=== PATIENT | male | born 1990 | race African-American/Black ===

== ENCOUNTER 2025-04-24 05:08 | Emergency (ER) | payer BC, SELFPAY ==
[2025-04-24 05:11] VITALS: BP 134/67; PULSE 65; RESP 18; TEMP 36.6; O2SAT 100
[2025-04-24 06:53] LABS: Add Urine Microscopic? NO; Appearance Urine Clear (Clear); Glucose Urine UA Negative (Negative); Leukocyte Esterase Ur Negative LEU/UL (Negative); Nitrate Urine Negative (Negative); Specific Grav Ur 1.019 (1.001-1.035)
--- OUTSIDE RECORDS SUMMARY | 2025-04-24 07:32 | XMS_ITS | Clinical Summary ---
Author Organization [facility] Address [address] [place] [address] Care Team Providers Care Rent Collector Name Role Phone Unavailable Primary Care Provider Unavailabl e Allergies No known active allergies Social History Tobacco Use Types Packs/Day Years Used Date Smoking Tobacco: Never Assessed Sex and Gender Information Value Date Recorded Sex Assigned at Not on file Legal Sex Male 12:58 AM CDT Gender Identity Not on file Sexual Orientation Not on file Last Filed Vital Signs Vital Sign Reading Time Taken Comments Blood Pressure 94/55 11/23/2017 2:18 AM CDT Pulse 65 11/23/2017 2:18 AM CDT Temperature 36.4 C (97.6 F) 11/23/2017 1:01 AM CDT Respiratory Rate 20 11/23/2017 2:18 AM CDT Oxygen Saturation 99% 11/23/2017 2:18 AM CDT Inhaled Oxygen Concentration - - Weight - - Height 177.8 cm (5' 10) 11/23/2017 1:01 AM CDT Body Mass Index - - Plan of Treatment Health Maintenance Due Date Last Done Comments Annual Physical 1995 Hepatitis C 2010 DTaP, Tdap and Td Vaccines ( 1 - Tdap) 2011 Hepatitis B Vaccines (1 of 3 - 19+ 3-dose series) 2011 HPV Vaccines (1 - 3-dose SCD M series) 2019 COVID-19 Vaccine (2023-2 5 season) 2025 Meningococcal B Vaccine Aged Out No l onger eligible based on patient's age to complete this topic Meningococcal Vaccine Aged Out No lucia moisés eligible based on patient's age to complete this topic Pneumococcal Vaccine: Pediat rics (0 to 5 Years) and At-Risk Patients (6 to 49 Years) Aged Out No longer eligible b ased on patient's age to complete this topic RSV Immunizations Under 20 Months Aged Out No longer eligible based on patient's age to complete this topic
--- NOTE | 2025-04-24 08:01 | ED.GENADULT ---
HPI - General Adult General Chief complaint: Unspecified Stated complaint: not feeling well, hurts down there Time Seen by Provider: 04/24/25 07:03 History of Present Illness HPI narrative: Patient is a 35-year-old male who presents ER with concerns about his groin. He has had some pain within the inguinal crease on the left and right side. Originally he was having fatigue over the last week cannot feeling right. He also reports he feels a little discomfort around his scrotum but notices no lesions. He denies being a risk for sexually transmitted infection. No dysuria or urinary frequency/urgency. No drainage from the tip his penis. He is concerned he may be diabetic. No known trauma. No back pain. Related Data Allergies Allergy/AdvReac Type Severity Reaction Status Date / Time No Known Allergies Allergy Verified 04/24/25 05:14 Review of Systems Constitutional: Constitutional: Reports no additional constitutional complaints Gastrointestinal: Gastrointestinal: Reports no additional gastrointestinal complaints Genitourinary: Genitourinary: Reports no additional male genitourinary complaints PMF Past Medical History Medical History (Updated 04/24/25 @ 08:06 by Juma Mcclellan MD) Healthy adult male Surgical History Surgical History (Updated 04/24/25 @ 08:03 by Juma Mcclellan MD) No pertinent past surgical history Exam Narrative: GENERAL: Well-appearing, well-nourished, and in no acute distress. HEAD: Normocephalic, atraumatic. ENT: Mucous membranes moist. CHEST: Clear to auscultation. No respiratory distress. HEART: Regular rate and rhythm. Normal peripheral pulses. ABDOMEN: Soft, nontender, nondistended. : Normal appearing external genitalia with circumcised penis. No urethral discharge. No testicular tenderness. No palpable lymphadenopathy in the groin. EXTREMITIES: Normal range of motion. No edema. SKIN: Warm, dry, no rash. NEURO: Alert and oriented x3. Course Course Emergency Course: UA and bedside glucose normal. Appropriate for discharge home. May have had a viral syndrome causing the. No back injury or back pain to indicate cauda equina. Recommend follow-up with PCP. Exam not consistent with STI, testicular torsion. Vital Signs Vital signs: Vital Signs Temperature 97.8 F 04/24/25 05:11 Pulse Rate 65 04/24/25 05:11 Respiratory Rate 18 04/24/25 05:11 Blood Pressure 134/67 04/24/25 05:11 Pulse Oximetry 100 04/24/25 05:11 Oxygen Delivery Room Air 04/24/25 05:11 Temperature 97.8 F 04/24/25 05:11 Pulse Rate 65 04/24/25 05:11 Respiratory Rate 18 04/24/25 05:11 Blood Pressure 134/67 04/24/25 05:11 Pulse Oximetry 100 04/24/25 05:11 Oxygen Delivery Room Air 04/24/25 05:11 Medical Decision Making Vital Signs Vital Signs: Vital Signs Temperature 97.8 F 04/24/25 05:11 Pulse Rate 65 04/24/25 05:11 Respiratory Rate 18 04/24/25 05:11 Blood Pressure 134/67 04/24/25 05:11 Pulse Oximetry 100 04/24/25 05:11 Oxygen Delivery Room Air 04/24/25 05:11 Temperature 97.8 F 04/24/25 05:11 Pulse Rate 65 04/24/25 05:11 Respiratory Rate 18 04/24/25 05:11 Blood Pressure 134/67 04/24/25 05:11 Pulse Oximetry 100 04/24/25 05:11 Oxygen Delivery Room Air 04/24/25 05:11 Lab Data Labs: Lab Results 04/24/25 04/24/25 Range/Units 06:42 07:32 POC Capillary Glucose 107 H (65-105) mg/dl Urine Color Yellow (Yellow) Urine Appearance Clear (Clear) Urine pH 6.0 (5.0-9.0) Ur Specific [place] 1.019 (1.001-1.035) Urine Protein Negative (Negative) mg/dL Urine Glucose (UA) Negative (Negative) mg/dL Urine Ketones Negative (Negative) mg/dL Ur Blood (Man) Negative (Negative) Urine Nitrate Negative (Negative) Urine Bilirubin Negative (Negative) Urine Urobilinogen 1.0 (<2.0) mg/dL Leukocyte Esterase Rfl Negative (Negative) ARIEL/UL Discharge Plan Discharge Clinical Impression: Groin pain Patient Disposition: Home Condition: Stable Instructions: Groin Pain (ED) Additional Instructions: Return to the emergency department if you develop severe abdominal pain, severe nausea and vomiting to the point where you are unable to keep down fluids, if you develop chest pain or difficulty breathing, blood in your stool, dizziness or fainting, or if you develop any other new or concerning symptoms as these could be signs of more serious medical illness. Try to stay well hydrated. Patient Language: Ukrainian Follow-up/Referrals: Swapnil Bo MD [Physician, Family Practice] - 1 Week PHYSICIAN,SENIOR CONSTRUCTION MANAGER [Primary Care Provider, Internal Medicine]
[2025-04-24 08:18] VITALS: BP 118/59; PULSE 72; RESP 14; TEMP 36.8; O2SAT 100
== END 2025-04-24 08:19 | disposition home or self-care (01) ==
PROVIDERS: Student in an Organized Health Care Education/Training Program; Emergency Provider Emergency Medicine
DX: R10.32 Left lower quadrant pain (principal); R10.31 Right lower quadrant pain
CPT/HCPCS: 81003; 82948; 99283